=== PATIENT | male | born 1990 | race Caucasian/White ===

== ENCOUNTER 2018-12-12 09:17 | Emergency (ER) | payer SELFPAY ==
--- NOTE | 2018-12-12 09:56 | RAD REPORT ---
EXAM DESCRIPTION: CT - Stone Protocol - 12/12/2018 9:43 am CLINICAL HISTORY: Flank pain. left back/flank pain, hx of stones COMPARISON: No comparisons TECHNIQUE: Axial images were obtained without oral or IV contrast. Lack of contrast limits solid org an and vascular assessment. The [id number] spans the entirety of the system partially obscuring uppermost abdomen and lung bases. Coronal reformatted images were obtained and reviewed. All CT scans are performed using dose optimization technique as appropriate and may include automated exposure control or mA/KV adjustment according to patient size. FINDINGS: The lower lung hernandez are clear. Imaged portions of the liver and spleen show no suspicious findings on non-contrast imaging. The panc reas and adrenal glands are normal. No pathologic lymphadenopathy in the abdomen or pelvis. No urinary tract stones or obstructive uropathy. No bowel obstruction, free air, free fluid or abscess. Normal appendix noted. Moderate stool is prese nt in the colon. No significant bony abnormality. IMPRESSION: No urinary tract stones or obstructive uropathy.
[2018-12-12 10:09] LABS: Basophils % 0.5 % (0-1.3); Hematocrit 44.9 % (39.6-49.0); Lymphocytes % 27.7 % (15.3-44.8); RBC Red Blood Cell Count 5.17 M/uL (4.33-5.43)
[2018-12-12 10:20] LABS: Urine Blood NEGATIVE (NEG); Urine Glucose NEGATIVE (NEG); Urine Protein NEGATIVE (NEG); Urine pH 7.5 (5.0-7.0)
[2018-12-12 10:26] LABS: Albumin 4.4 g/dL (3.4-5.0); Bilirubin Direct 0.1 mg/dL (0-0.2); Bilirubin Total 0.3 mg/dL (0.2-1.0); Potassium 4.6 mmol/L (3.5-5.1); Protein, Total 7.8 g/dL (6.4-8.2)
[2018-12-12 10:45] LABS: Urine Bacteria <20 /HPF (NONE SEEN); Urine Culture Reflex Order NOT NEEDED; Urine RBC NONE SEEN /HPF (NONE SEEN)
--- NOTE | 2018-12-12 10:45 | EDPHYS ---
Physician Documentation [facility] Name: Elliott Garcia Age: 28 yrs Sex: Male : 1990 Arrival Date: 12/12/2018 Time: 09:22 Bed 6 Private MD: ED Physician Dav Torres HPI: 12/12 09:46 This 28 yrs old Male presents to ER via Ambulatory with complaints of rn Possible Kidney Stone. 09:46 The patient presents with pain that is acute. The symptoms are located in the low back. rn Onset: The symptoms/episode began/occurred 3 day(s) ago. The pain does not radiate. Associated signs and symptoms: The patient has no apparent associated signs or symptoms, Pertinent negatives: fever, hematuria, incontinence, numbness, urinary retention, vomiting, weakness. Modifying factors: The patient symptoms are alleviated by nothing, the patient symptoms are aggravated by movement. Severity of symptoms: At their worst the symptoms were moderate, in the emergency department the symptoms have improved. The patient has experienced similar episodes in the past. Reports feels a little different than previous kidney stones, + low back pain, began a few days ago, no obvious injury but works at [employer] and constantly lifting, no weakness or numbness of legs, no urinary symptoms.. Historical: - Allergies: 09:29 No Known Allergies; tw2 - Home Meds: 09:29 None [Active]; tw2 - PMHx: 09:29 None; tw2 - PSHx: 09:29 None; tw2 - Immunization history:: Adult Immunizations. - Social history:: Smoking status: Patient uses tobacco products, smokes one-half pack cigarettes per day. - Ebola Screening: : Patient denies travel to an Ebola-affected area in the 21 days before illness onset. - Family history:: not pertinent. - Hospitalizations: : No recent hospitalization is reported. ROS: 09:46 Constitutional: Negative for fever, chills, and weight loss, Eyes: Negative for injury, rn pain, redness, and discharge, Cardiovascular: Negative for chest pain, palpitations, and edema, Respiratory: Negative for shortness of breath, cough, wheezing, and pleuritic chest pain, Abdomen/GI: Negative for abdominal pain, nausea, vomiting, diarrhea, and constipation, Back: + low back pain : Negative for injury, bleeding, discharge, and swelling, MS/Extremity: Negative for injury and deformity, Neuro: Negative for headache, weakness, numbness, tingling, and seizure. Exam: 09:46 Constitutional: This is a well developed, well nourished patient who is awake, alert, rn and in no acute distress. Ambulatory to room without difficulty or assistance. Abdomen/GI: soft, non-tender Back: No spinal tenderness. No costovertebral tenderness. Full range of motion. Skin: Warm, dry with normal turgor. Normal color with no rashes, no lesions, and no evidence of cellulitis. MS/ Extremity: Pulses equal, no cyanosis. Neurovascular intact. Full, normal range of motion. Equal circumference. Neuro: Awake and alert, GCS 15, oriented to person, place, time, and situation. Cranial nerves II-XII grossly intact. Motor strength 5/5 in all extremities. Sensory grossly intact. Cerebellar exam normal. Normal gait. Vital Signs: 09:28 BP 139 / 95; Pulse 90; Resp 18; Temp 98.2(O); Pulse Ox 100% on R/A; Weight 74.84 kg tw2 (R); Height 6 ft. 0 in. (182.88 cm) (R); Pain 5/10; 10:23 BP 112 / 65; Pulse 57; Resp 18; Pulse Ox 100% on R/A; tw2 09:28 Body Mass Index 22.38 (74.84 kg, 182.88 cm) tw2 MDM: 09:22 Patient medically screened. rn 10:43 Differential diagnosis: sprain, Ureterolithiasis back pain, strain, kidney stone. Data rn reviewed: vital signs, nurses notes, lab test result(s), radiologic studies, CT scan, and as a result, I will discharge patient. Counseling: I had a detailed discussion with the patient and/or guardian regarding: the historical points, exam findings, and any diagnostic results supporting the discharge/admit diagnosis, lab results, radiology results, the need for outpatient follow up, to return to the emergency department if symptoms worsen or persist or if there are any questions or concerns that arise at home. Response to treatment: the patient's symptoms have mildly improved after treatment, and as a result, I will discharge patient. Special discussion: I discussed with the patient/guardian in detail that at this point there is no indication for admission to the hospital. It is understood, however, that if the symptoms persist or worsen the patient needs to return immediately for re-evaluation. ED course: No acute findings on ct scan or blood work, neg UA, will dc home.. 12/12 09:27 Order name: Basic Metabolic Panel; Complete Time: 10:35 rn 12/12 09:27 Order name: CBC with Diff; Complete Time: 10:35 rn 12/12 09:27 Order name: Hepatic Function; Complete Time: 10:35 rn 12/12 09:27 Order name: Lipase; Complete Time: 10:35 rn 12/12 09:27 Order name: Urine Microscopic Only; Complete Time: 10:49 rn 12/12 09:42 Order name: Urine Dipstick--Ancillary (enter results); Complete Time: 10:35 bd 12/12 09:27 Order name: IV Saline Lock; Complete Time: 10:46 rn 12/12 09:27 Order name: Labs collected and sent; Complete Time: 09:57 rn 12/12 09:27 Order name: CT Stone Protocol; Complete Time: 10:01 rn 12/12 09:27 Order name: Urine Dipstick-Ancillary (obtain specimen); Complete Time: 09:36 rn Administered Medications: No medications were administered Disposition: 12/12/18 10:44 Discharged to Home. Impression: Low back pain. - Condition is Stable. - Discharge Instructions: Back Pain, Adult, Musculoskeletal Pain. - Prescriptions for Ultram 50 mg Oral Tablet - take 1 tablet by ORAL route every 6 hours As needed; 20 tablet. Cyclobenzaprine 10 mg Oral Tablet - take 1 tablet by ORAL route every 8 hours As needed; 20 tablet. - Medication Reconciliation Form, Thank You Letter, Antibiotic Education, Prescription Opioid Use, Work release form form. - Follow up: Private Physician; When: As needed; Reason: Recheck today's complaints, Re-evaluation by your physician. - Problem is new. - Symptoms have improved. Signatures: Dispatcher [employer] EDMS Dav Torres MD MD rn Wise, Tara, RN RN tw2 Corrections: (The following items were deleted from the chart) 10:49 10:44 12/12/2018 10:44 Discharged to Home. Impression: Low back pain. Condition is tw2 Stable. Forms are Medication Reconciliation Form, Thank You Letter, Antibiotic Education, Prescription Opioid Use. Follow up: Private Physician; When: As needed; Reason: Recheck today's complaints, Re-evaluation by your physician. Problem is new. Symptoms have improved. rn
--- NOTE | 2018-12-12 10:45 | ER ---
Nurse's Notes [facility] Name: Elliott Garcia Age: 28 yrs Sex: Male : 1990 Arrival Date: 12/12/2018 Time: 09:22 Bed 6 Private MD: Diagnosis: Low back pain Presentation: 12/12 09:27 Presenting complaint: Patient states: i feel like i have a kidney stone, but it comes tw2 and goes, it starts in my left low back and radiates front. Transition of care: patient was not received from another setting of care. Onset of symptoms was December 12, 2018. Risk Assessment: Do you want to hurt yourself or someone else? Patient reports no desire to harm self or others. Initial Sepsis Screen: Does the patient meet any 2 criteria? No. Patient's initial sepsis screen is negative. Does the patient have a suspected source of infection? No. Patient's initial sepsis screen is negative. Care prior to arrival: None. 09:27 Method Of Arrival: Ambulatory tw2 09:27 Acuity: KALIN 3 tw2 Triage Assessment: 09:28 General: Appears in no apparent distress. slender, Behavior is calm, cooperative, tw2 appropriate for age. Pain: Complains of pain in left low back. GI: Reports lower abdominal pain. Historical: - Allergies: 09:29 No Known Allergies; tw2 - Home Meds: : None [Active]; tw2 - PMHx: 09:29 None; tw2 - PSHx: 09:29 None; tw2 - Immunization history:: Adult Immunizations. - Social history:: Smoking status: Patient uses tobacco products, smokes one-half pack cigarettes per day. - Ebola Screening: : Patient denies travel to an Ebola-affected area in the 21 days before illness onset. - Family history:: not pertinent. - Hospitalizations: : No recent hospitalization is reported. Screenin:29 Abuse screen: Denies threats or abuse. Nutritional screening: No deficits noted. tw2 Tuberculosis screening: No symptoms or risk factors identified. Fall Risk None identified. Assessment: 09:25 General: Appears in no apparent distress. Behavior is calm, cooperative, appropriate tw2 for age. Pain: Complains of pain in left low back Pain radiates to abdomen. Neuro: Level of Consciousness is awake, alert, obeys commands, Oriented to person, place, time, situation. Cardiovascular: Heart tones S1 S2 Patient's skin is warm and dry. Respiratory: Airway is patent Respiratory effort is even, unlabored, Respiratory pattern is regular, symmetrical, Breath sounds are clear bilaterally. GI: Abdomen is flat, Bowel sounds present X 4 quads. Abd is soft X 4 quads. : No signs and/or symptoms were reported regarding the genitourinary system. EENT: No signs and/or symptoms were reported regarding the EENT system. Derm: No signs and/or symptoms reported regarding the dermatologic system. Musculoskeletal: Range of motion: intact in all extremities. 10:23 Reassessment: Patient appears in no apparent distress at this time. No changes from tw2 previously documented assessment. Patient and/or family updated on plan of care and expected duration. Pain level reassessed. Patient is alert, oriented x 3, equal unlabored respirations, skin warm/dry/pink. 10:49 Reassessment: Patient appears in no apparent distress at this time. No changes from tw2 previously documented assessment. Patient and/or family updated on plan of care and expected duration. Pain level reassessed. Patient is alert, oriented x 3, equal unlabored respirations, skin warm/dry/pink. Vital Signs: 09:28 BP 139 / 95; Pulse 90; Resp 18; Temp 98.2(O); Pulse Ox 100% on R/A; Weight 74.84 kg tw2 (R); Height 6 ft. 0 in. (182.88 cm) (R); Pain 5/10; 10:23 BP 112 / 65; Pulse 57; Resp 18; Pulse Ox 100% on R/A; tw2 09:28 Body Mass Index 22.38 (74.84 kg, 182.88 cm) tw2 ED Course: 09:22 Patient arrived in ED. cl3 09:22 Dav Torres MD is Attending Physician. rn 09:23 Bed in low position. Call light in reach. tw2 09:27 Tianna Frederick RN is Primary Nurse. tw2 09:28 Triage completed. tw2 09:28 Arm band placed on. tw2 09:45 CT Stone Protocol In Process Unspecified. EDMS 09:57 Missed attempt(s): 22 gauge in right antecubital area. blood collected and sent. Missed tw2 attempt(s): 22 gauge in right antecubital area. Bleeding controlled, band aid applied, catheter tip intact. 10:48 No provider procedures requiring assistance completed. Patient did not have IV access tw2 during this emergency room visit. Administered Medications: No medications were administered Outcome: 10:44 Discharge ordered by . rn 10:48 Discharged to home ambulatory. tw2 10:48 Condition: stable 10:48 Discharge instructions given to patient, Instructed on discharge instructions, the need for admit, no drinking with medication, no driving heavy equipment, medication usage, Demonstrated understanding of instructions, follow-up care, medications, Prescriptions given X 2. 10:49 Patient left the ED. tw2 Signatures: Dispatcher [employer] EDMS Dav Torres MD MD rn Wise, Tara, RN RN tw2 Eleazar Palacios cl3
== END 2018-12-12 10:49 | disposition home or self-care (01) ==
LOC: ER 09:17
DX: M54.5 Low back pain (principal); F17.210 Nicotine dependence, cigarettes, uncomplicated
CPT/HCPCS: 36415; 74176; 76377; 80048; 80076; 81003; 81015; 83690; 85025; 99283

== ENCOUNTER 2018-12-15 14:23 | Emergency (ER) | payer SELFPAY ==
[2018-12-15] MEDS ORDERED: KETOROLAC 30 MG/ML INJ ONE (15:06)
--- NOTE | 2018-12-15 15:29 | EDPHYS ---
Physician Documentation [facility] Name: Elliott Garcia Age: 28 yrs Sex: Male : 1990 Arrival Date: 12/15/2018 Time: 14:25 Bed 19 Private MD: ED Physician Rudy Mejia HPI: 12/15 15:21 This 28 yrs old Male presents to ER via Ambulatory with complaints of Back kb Pain. 15:21 The patient presents with pain that is acute. The symptoms are located in the left low kb back. Onset: The symptoms/episode began/occurred 3 day(s) ago, and became worse today. The pain radiates to the left leg. Associated signs and symptoms: The patient has no apparent associated signs or symptoms. The problem was sustained when lifting. Modifying factors: The patient symptoms are alleviated by nothing, the patient symptoms are aggravated by any movement. Severity of symptoms: At their worst the symptoms were moderate, in the emergency department the symptoms are unchanged. The patient has not experienced similar symptoms in the past. The patient has not recently seen a physician. Pt reports he has had left low back pain for a few days, was seen here and given muscle relaxers and tramadol. Today he lifted something heavy at work and the pain got worse and radiates down the leg. Ambulates with steady gait. No tenderness upon palpation. Historical: - Allergies: 14:45 No Known Allergies; hb - Immunization history:: Adult Immunizations up to date. - Social history:: Smoking status: Patient uses tobacco products, smokes one-half pack cigarettes per day. - Ebola Screening: : No symptoms or risks identified at this time. ROS: 15:20 Constitutional: Negative for fever, chills, and weight loss, Cardiovascular: Negative kb for chest pain, palpitations, and edema, Respiratory: Negative for shortness of breath, cough, wheezing, and pleuritic chest pain, Abdomen/GI: Negative for abdominal pain, nausea, vomiting, diarrhea, and constipation, : Negative for injury, bleeding, discharge, and swelling, MS/Extremity: Negative for injury and deformity, Skin: Negative for injury, rash, and discoloration, Neuro: Negative for headache, weakness, numbness, tingling, and seizure. 15:20 Back: Positive for pain at rest, pain with movement, radiated pain, of the left low back. Exam: 15:20 Constitutional: This is a well developed, well nourished patient who is awake, alert, kb and in no acute distress. Head/Face: Normocephalic, atraumatic. Neck: Trachea midline, no thyromegaly or masses palpated, and no cervical lymphadenopathy. Supple, full range of motion without nuchal rigidity, or vertebral point tenderness. No Meningismus. Chest/axilla: Normal chest wall appearance and motion. Nontender with no deformity. No lesions are appreciated. Cardiovascular: Regular rate and rhythm with a normal S1 and S2. No gallops, murmurs, or rubs. Normal PMI, no JVD. No pulse deficits. Respiratory: Lungs have equal breath sounds bilaterally, clear to auscultation and percussion. No rales, rhonchi or wheezes noted. No increased work of breathing, no retractions or nasal flaring. Abdomen/GI: Soft, non-tender, with normal bowel sounds. No distension or tympany. No guarding or rebound. No evidence of tenderness throughout. Skin: Warm, dry with normal turgor. Normal color with no rashes, no lesions, and no evidence of cellulitis. MS/ Extremity: Pulses equal, no cyanosis. Neurovascular intact. Full, normal range of motion. Neuro: Awake and alert, GCS 15, oriented to person, place, time, and situation. Cranial nerves II-XII grossly intact. Motor strength 5/5 in all extremities. Sensory grossly intact. Cerebellar exam normal. Normal gait. 15:20 Back: pain, that is moderate, of the left low back, ROM is painful, normal spinal alignment noted. Vital Signs: 14:44 BP 139 / 90; Pulse 101; Resp 16; Temp 97.8; Pulse Ox 100% on R/A; Weight 77.11 kg; hb Height 6 ft. (182.88 cm); Pain 8/10; 15:55 BP 128 / 87; Pulse 85; Resp 16; Pulse Ox 99% on R/A; em 14:44 Body Mass Index 23.06 (77.11 kg, 182.88 cm) hb MDM: 14:52 Patient medically screened. kb 15:19 Data reviewed: vital signs, nurses notes. Data interpreted: Pulse oximetry: on room air kb is 100 %. Interpretation: normal. Counseling: I had a detailed discussion with the patient and/or guardian regarding: the historical points, exam findings, and any diagnostic results supporting the discharge/admit diagnosis, the need for outpatient follow up, a family practitioner, to return to the emergency department if symptoms worsen or persist or if there are any questions or concerns that arise at home. Administered Medications: 15:09 Drug: TORadol 30 mg Route: IM; Site: right deltoid; em 16:03 Follow up: Response: No adverse reaction em Disposition: 12/15/18 15:28 Discharged to Home. Impression: Sciatica, left side. - Condition is Stable. - Discharge Instructions: Sciatica, [id number]. - Prescriptions for Diclofenac Sodium 75 mg Oral Tablet, Delayed Release (E.C.) - take 1 tablet by ORAL route 2 times per day As needed; 30 tablet. - Medication Reconciliation Form, Thank You Letter, Antibiotic Education, Prescription Opioid Use form. - Follow up: Emergency Department; When: As needed; Reason: Worsening of condition. Follow up: Private Physician; When: 2 - 3 days; Reason: Recheck today's complaints, Continuance of care, Re-evaluation by your physician. Addendum: 12/18/2018 09:11 Co-signature as Attending Physician, Rudy Mejia MD I agree with the assessment and k dr plan of care. Signatures: Albina Abdul, REPRODUCTION PRODUCTION MANAGER-C REPRODUCTION PRODUCTION MANAGER-Ckb Rudy Mejia MD MD [facility] Gerardo Bruce, IT COORDINATOR IT COORDINATOR em Cora Rowe, NOEMY RN Corrections: (The following items were deleted from the chart) 12/15 16:04 15:28 12/15/2018 15:28 Discharged to Home. Impression: Sciatica, left side. Condition em is Stable. Forms are Medication Reconciliation Form, Thank You Letter, Antibiotic Education, Prescription Opioid Use. Follow up: Emergency Department; When: As needed; Reason: Worsening of condition. Follow up: Private Physician; When: 2 - 3 days; Reason: Recheck today's complaints, Continuance of care, Re-evaluation by your physician. kb
--- NOTE | 2018-12-15 15:29 | ER ---
Nurse's Notes [facility] Name: Elliott Garcia Age: 28 yrs Sex: Male : 1990 Arrival Date: 12/15/2018 Time: 14:25 Bed 19 Private MD: Diagnosis: Sciatica, left side Presentation: 12/15 14:42 Presenting complaint: Left sided low back pain that radiates to left leg x 4 days, hb today pain became severe after lifting heavy box at work. Transition of care: patient was not received from another setting of care. Onset of symptoms was December 15, 2018. Risk Assessment: Do you want to hurt yourself or someone else? Patient reports no desire to harm self or others. Initial Sepsis Screen: Does the patient meet any 2 criteria? No. Patient's initial sepsis screen is negative. Does the patient have a suspected source of infection? No. Patient's initial sepsis screen is negative. Care prior to arrival: None. 14:42 Method Of Arrival: Ambulatory hb 14:42 Acuity: KALIN 4 hb Historical: - Allergies: 14:45 No Known Allergies; hb - Immunization history:: Adult Immunizations up to date. - Social history:: Smoking status: Patient uses tobacco products, smokes one-half pack cigarettes per day. - Ebola Screening: : No symptoms or risks identified at this time. Screenin:55 Abuse screen: Denies threats or abuse. Nutritional screening: No deficits noted. em Tuberculosis screening: No symptoms or risk factors identified. Fall Risk None identified. Assessment: 14:55 General: Appears in no apparent distress. comfortable, Behavior is calm, cooperative. em Pain: Complains of pain in left low back Pain radiates to left leg Pain currently is 8 out of 10 on a pain scale. Quality of pain is described as radiating, Pain began 4 days ago. Neuro: Level of Consciousness is awake, alert, obeys commands, Oriented to person, place, time, situation, Denies paresthesias. Cardiovascular: Capillary refill < 3 seconds Patient's skin is warm and dry. Respiratory: Airway is patent Respiratory effort is even, unlabored, Respiratory pattern is regular, symmetrical. GI: Patient currently denies nausea, vomiting. : Denies burning with urination. Derm: Skin is intact, is healthy with good turgor, Skin is pink, warm \T\ dry. Musculoskeletal: Capillary refill < 3 seconds, Range of motion: intact in all extremities. 14:55 Reassessment: I agree with assessment completed by Gerardo Bruce LVN . aa5 Vital Signs: 14:44 BP 139 / 90; Pulse 101; Resp 16; Temp 97.8; Pulse Ox 100% on R/A; Weight 77.11 kg; hb Height 6 ft. (182.88 cm); Pain 8/10; 15:55 BP 128 / 87; Pulse 85; Resp 16; Pulse Ox 99% on R/A; em 14:44 Body Mass Index 23.06 (77.11 kg, 182.88 cm) hb ED Course: 14:25 Patient arrived in ED. cl3 14:44 Triage completed. hb 14:45 Arm band placed on. hb 14:52 Albina Abdul F[facility]-C [facility]. kb 14:52 Rudy Mejia MD is Attending Physician. kb 14:55 Patient has correct armband on for positive identification. Bed in low position. Call em light in reach. 15:04 Gerardo Bruce LVN is Primary Nurse. em 16:03 No provider procedures requiring assistance completed. Patient did not have IV access em during this emergency room visit. Administered Medications: 15:09 Drug: TORadol 30 mg Route: IM; Site: right deltoid; em 16:03 Follow up: Response: No adverse reaction em Outcome: 15:28 Discharge ordered by MD. kb 16:03 Discharged to home ambulatory. em 16:03 Condition: stable 16:03 Discharge instructions given to patient, Instructed on discharge instructions, follow up and referral plans. medication usage, Demonstrated understanding of instructions, follow-up care, medications, Prescriptions given X 1. 16:04 Patient left the ED. em Signatures: Albina Abdul FNP-C BARREL ASSEMBLER-Gerardo Gallegos LVN LVN em Nicole Anderson RN RN aa5 Cora Rowe RN RN Eleazar Palacios cl3 Corrections: (The following items were deleted from the chart) 14:45 14:42 Acuity: KALIN 3 hb hb
== END 2018-12-15 16:04 | disposition home or self-care (01) ==
LOC: ER 14:23
DX: M54.32 Sciatica, left side (principal); F17.210 Nicotine dependence, cigarettes, uncomplicated
CPT/HCPCS: 96372; 99283